=== PATIENT | female | born 1990 | race Caucasian/White ===

== ENCOUNTER 2018-11-07 00:15 | Emergency (ER) | payer OTHER ==
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
[2018-11-07 02:35] VITALS: BP 132/71
== END 2018-11-07 02:21 | disposition home or self-care (01) ==
LOC: ED 00:15
DX: M54.5 Low back pain (principal); V89.2XXA Person injured in unspecified motor-vehicle accident, traffic, initial encounter; Y92.9 Unspecified place or not applicable; E07.9 Disorder of thyroid, unspecified; M51.37 Other intervertebral disc degeneration, lumbosacral region
CPT/HCPCS: 72110; 99282